=== PATIENT | male | born 1985 ===

== ENCOUNTER 2016-08-15 14:32 | Emergency (ER) | payer OTHER ==
[2016-08-15 14:32] VITALS: BMI 28.0
[2016-08-15 14:39] VITALS: BP 134/90; PULSE 87; RESP 18; TEMP 97.7; O2SAT 97
--- NOTE | 2016-08-15 15:06 | ED PDOC ---
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 denies: Chills, Nausea, Vomiting, Loss Of Appetite, Chest Pain Additional Complaint(s): No fever. PT has not taken medication for pain at home. Pt reports being sexually active without protection. No N/V/back pain. Pt states one day a week ago he had blood. Past Medical History Reviewed: Historical Data, Nursing Documentation, Vital Signs Vital Signs: Last Vital Signs Temp 97.7 F 08/15/16 14:37 Pulse 87 08/15/16 14:37 Resp 18 08/15/16 14:37 BP 134/90 08/15/16 14:37 Pulse Ox 97 08/15/16 14:37 - Medical History PMH: No Chronic Diseases - Surgical History Surgical History: No Surg Hx - Family History Family History: Denies: [place], CAD - Living Arrangements Living Arrangements: With Family - Social History Current smoker - smoking cessation education provided: No - Home Medications Home Medications: Ambulatory Orders Medication Instructions Recorded Ibuprofen [Motrin Tab] 600 mg PO Q6 PRN #15 tab 11/16/15 Ciprofloxacin [Cipro] 500 mg PO BID #10 tab 08/15/16 Ibuprofen [Motrin Tab] 800 mg PO Q6H PRN #20 tab 08/15/16 Tamsulosin [Flomax] 0.4 mg PO DAILY #10 cap 08/15/16 - Allergies Allergies/Adverse Reactions: Allergies Allergy/AdvReac Type Severity Reaction Status Date / Time No Known Allergies Allergy Verified 08/15/16 14:37 Review of Systems ROS Statement: Except As Marked, All Systems Reviewed And Found Negative Genitourinary Male: Positive for: Dysuria, Hematuria Physical Exam - Reviewed Nursing Documentation Reviewed: Yes Vital Signs Reviewed: Yes - Physical Exam Appears: Positive for: Well, Non-toxic, No Acute Distress Head Exam: Positive for: ATRAUMATIC, NORMAL INSPECTION, NORMOCEPHALIC Skin: Positive for: Normal Color, Warm, DRY Eye Exam: Positive for: Normal appearance ENT: Positive for: Normal ENT Inspection Neck: Positive for: Normal, Painless ROM Cardiovascular/Chest: Positive for: Regular Rate, Rhythm Respiratory: Positive for: Normal Breath Sounds. Negative for: Accessory Muscle Use, Respiratory Distress Gastrointestinal/Abdominal: Positive for: Normal Exam, Bowel Sounds, Soft. Negative for: Tenderness Back: Positive for: Normal Inspection Extremity: Positive for: Normal ROM Neurologic/Psych: Positive for: Alert, Oriented - Laboratory Results Result Diagrams: 08/15/16 15:22 08/15/16 15:22 - ECG O2 Sat by Pulse Oximetry: 97 Disposition - Clinical Impression Clinical Impression: Renal stone - Patient ED Disposition Is Patient to be Admitted: No Counseled Patient/Family Regarding: Diagnosis, Need For Followup, Rx Given - Disposition Disposition: Routine/Home Disposition Time: 17:48 Condition: GOOD Prescriptions: Ciprofloxacin [Cipro] 500 mg PO BID #10 tab Ibuprofen [Motrin Tab] 800 mg PO Q6H PRN #20 tab PRN Reason: Pain Tamsulosin [Flomax] 0.4 mg PO DAILY #10 cap Instructions: Kidney Stones (ED)
[2016-08-15 15:30] LABS: HEMOGLOBIN 15.5 g/dL (12.0-18.0); MEAN CELL VOLUME 83.7 fl (80.0-94.0); MEAN CORPUSCULAR HEMOGLOBIN 27.7 pg (27.0-31.0); MEAN CORPUSCULAR HGB CONC 33.1 g/dL (33.0-37.0); RBC 5.6 Mil/uL (4.40-5.90); RED CELL DISTRIBUTION WIDTH 13.2 % (11.5-14.5); WHITE BLOOD COUNT 11.4 K/uL (4.8-10.8)
[2016-08-15 15:47] LABS: ALB/GLOB RATIO 1.4 (1.0-2.1); ALBUMIN 4.6 g/dL (3.5-5.0); ALT/SGPT 66 U/L (21-72); AST/SGOT 38 U/L (17-59); BLOOD UREA NITROGEN 22 mg/dl (9-20); CALCIUM 9.9 mg/dL (8.4-10.2); GFR AFRICAN-AMERICAN > 60; GFR NON-AFRICAN AMERICAN > 60
--- NOTE | 2016-08-15 17:29 | CT ---
PROCEDURE: CT abdomen pelvis. HISTORY: Dated 08/15/2016 hematuria. A, sharp left sided abdominal pain COMPARISON: None. TECHNIQUE: Contiguous axial images of the abdomen and pelvis. Oral contrast was administered. No IV contrast given. Coronal and Sagittal reformats generated. Radiation dose: Total exam DLP = 1104.3 mGy-cm. This CT exam was performed using one or more of the following dose reduction techniques: Automated exposure control, adjustment of the mA and/or kV according to patient size, and/or use of iterative reconstruction technique. FINDINGS: LOWER THORAX: There is minor subsegmental atelectasis and or scarring changes in the right lung base. Remaining lung bases are otherwise clear. No effusion or pneumothorax. Heart size within range of normal. Tiny hiatal hernia. Slight wall thickening of the distal esophagus could be due to protrusion of gastric mucosa. Possibility of esophagitis not excluded. LIVER: Liver is upper limits of normal in size measuring just over 18 cm in CC dimension. Mild diffuse fatty hepatic infiltration with scattered areas of fatty sparing. GALLBLADDER AND BILE DUCTS: Gallbladder is physiologically distended. No evidence of intraluminal gallbladder calculi. PANCREAS: The pancreas is slightly atrophic and fatty replaced. . SPLEEN: Spleen exhibits normal size and attenuation pattern without mass collection or calcification. There is a there are 2 small splenules adjacent to to the anterior and inferior margins of the main body of the spleen. ADRENALS: No adrenal lesions. KIDNEYS AND URETERS: Kidneys exhibit relatively symmetric size. . There is a small approximately 3 mm calculus seen in the lower pole left collecting system left kidney. No other calculi. No evidence of hydronephrosis. . There is a 2 mm calculus within the right UVJ region with minimal dilatation of the distal aspect of the right ureter. BLADDER: Urinary bladder is incompletely distended which may account for slight thick-walled appearance. Muscular hypertrophy may contribute. Rule out cystitis. The REPRODUCTIVE: Unremarkable. APPENDIX: Normal appendix best seen on axial image number [id number]. No periappendiceal inflammatory changes. BOWEL: Evaluation of the bowel is somewhat limited due to the lack of oral contrast material. Stomach is distended with food debris liquid and air. Visualized loops of small bowel exhibit normal contour and caliber. No evidence of acute mechanical small bowel obstruction. There is mild submucosal fatty deposition on along the distal aspect of the ascending colon and hepatic flexure region suggesting sequela of chronic inflammation. Clinical correlation recommended. PERITONEUM: Unremarkable. No fluid collection. No free air. LYMPH NODES: Unremarkable. No enlarged lymph nodes. VASCULATURE: Unremarkable. No aortic aneurysm. BONES: No fracture or destructive lesion. OTHER FINDINGS: None. IMPRESSION: Small 2 mm calculus of right UVJ region with minimal of dilatation of the distal right ureter. 3 mm calculus lower pole collecting system left kidney. Urinary bladder is incompletely distended which may account for slight thick-walled appearance. Possibility of a cystitis not excluded. Subsegmental atelectasis and or scarring right lung base. Borderline hepatomegaly. Fatty infiltration. There also appears to be mild submucosal fat deposition within a short segment of the distal ascending colon suggesting sequela of chronic inflammation. Clinical correlation recommended.
== END 2016-08-15 18:57 | disposition home or self-care (01) ==
LOC: H.ER 14:32
DX: N20.0 Calculus of kidney (principal)

== ENCOUNTER 2016-08-23 14:28 | Emergency (ER) | payer OTHER ==
[2016-08-23 14:28] VITALS: BMI 28.0
[2016-08-23 14:44] VITALS: RESP 18
[2016-08-23] MEDS ORDERED: Sodium Chloride 0.9% 2,000 ML IV STA (14:50)
--- NOTE | 2016-08-23 15:10 | ED PDOC ---
HPI: Male Pain Time Seen by Provider: 08/23/16 14:48 Chief Complaint (Nursing): Male Genitourinary History Per: Patient History/Exam Limitations: no limitations Onset/Duration Of Symptoms: Hrs (2) Current Symptoms Are (Timing): Better Severity: Moderate Pain Scale Rating Of: 4 Quality Of Discomfort: Stabbing Associated Symptoms: Urinary Symptoms. denies: Fever, Chills, Nausea, Vomiting , Diarrhea, Loss Of Appetite, Back Pain Alleviating Factors: None Additional History Per: Patient, Prior Records Additional Complaint(s): Pt co right flank pain for 2hr. Pain is intermittent. He took advil that helped. Associated dysuria. Pt has been seen here for the same on July 16. He was dx with 2 mm right IVJ stone on the CT. Pt reports he lost his rx but felt well and he did not return until today. Denies fever or vomiting. Past Medical History Reviewed: Historical Data, Nursing Documentation, Vital Signs Vital Signs: Last Vital Signs Temp 98.4 F 08/23/16 14:42 Pulse 94 H 08/23/16 14:42 Resp 18 08/23/16 14:42 BP 139/89 08/23/16 14:42 Pulse Ox 97 08/23/16 14:42 - Medical History PMH: Kidney Stones - Surgical History Surgical History: No Surg Hx - Family History Family History: States: No Known Family Hx Denies: [place], CAD - Home Medications Home Medications: Ambulatory Orders Medication Instructions Recorded Ibuprofen [Motrin Tab] 600 mg PO Q6 PRN #15 tab 11/16/15 Ibuprofen [Motrin Tab] 800 mg PO Q6H PRN #20 tab 08/15/16 Ciprofloxacin [Cipro] 500 mg PO BID #10 tab 08/23/16 Tamsulosin [Flomax] 0.4 mg PO DAILY #10 cap 08/23/16 - Allergies Allergies/Adverse Reactions: Allergies Allergy/AdvReac Type Severity Reaction Status Date / Time No Known Allergies Allergy Verified 08/15/16 14:37 Review of Systems ROS Statement: Except As Marked, All Systems Reviewed And Found Negative Physical Exam - Reviewed Nursing Documentation Reviewed: Yes Vital Signs Reviewed: Yes - Physical Exam Appears: Positive for: Non-toxic, No Acute Distress Head Exam: Positive for: ATRAUMATIC Skin: Positive for: Warm, Dry Eye Exam: Positive for: EOMI Neck: Positive for: Normal, Painless ROM Cardiovascular/Chest: Positive for: Regular Rate, Rhythm. Negative for: Tachycardia Respiratory: Positive for: Normal Breath Sounds. Negative for: Respiratory Distress Gastrointestinal/Abdominal: Positive for: Soft. Negative for: Tenderness Back: Negative for: L CVA Tenderness, R CVA Tenderness Extremity: Positive for: Normal ROM Neurologic/Psych: Positive for: Alert, Oriented - Laboratory Results Result Diagrams: 08/23/16 15:20 08/23/16 15:20 - ECG O2 Sat by Pulse Oximetry: 97 - Progress Re-evaluation Time: 18:00 Condition: Re-examined, Improved Medical Decision Making Medical Decision Making: Right flank pain Diff include renal colic from ureteral stone, UTI Plan Labs Renal US IVF flomax 0.4 mg PO Renal US no acute findings Disposition - Clinical Impression Clinical Impression: Urinary tract infection, Kidney stones - Patient ED Disposition Is Patient to be Admitted: No Doctor Will See Patient In The: Office Counseled Patient/Family Regarding: Studies Performed, Diagnosis, Need For Followup - Disposition Referrals: [facility] [Outside] Disposition: Routine/Home Disposition Time: 18:17 Condition: GOOD Additional Instructions: Take medications as instructed. Return for worsening. Follow up with your PCP in 2-3 days. Prescriptions: Ciprofloxacin [Cipro] 500 mg PO BID #10 tab Tamsulosin [Flomax] 0.4 mg PO DAILY #10 cap Instructions: Urinary Tract Infection in Men (ED), Renal Colic (ED) Print Language: ITALIAN
[2016-08-23 15:30] LABS: BASO # 0.1 K/uL (0.0-0.2); BASO % 0.5 % (0.0-2.0); EOS # 0.1 K/uL (0.0-0.7); HEMOGLOBIN 14.5 g/dL (12.0-18.0); LYMPH % 10.8 % (20.0-40.0); MEAN CELL VOLUME 84.4 fl (80.0-94.0); MEAN CORPUSCULAR HEMOGLOBIN 28.2 pg (27.0-31.0); MEAN CORPUSCULAR HGB CONC 33.4 g/dL (33.0-37.0); MEAN PLATELET VOLUME 10.3 fl (7.2-11.7); MONO # 0.5 K/uL (0.0-0.8); MONO % 5.1 % (0.0-10.0); NEUT # 7.9 K/uL (1.8-7.0); NEUT % 82.6 % (50.0-75.0); RBC 5.14 Mil/uL (4.40-5.90); RED CELL DISTRIBUTION WIDTH 12.9 % (11.5-14.5); WHITE BLOOD COUNT 9.6 K/uL (4.8-10.8)
[2016-08-23 15:46] LABS: ALB/GLOB RATIO 1.2 (1.0-2.1); ALBUMIN 4.3 g/dL (3.5-5.0); ALT/SGPT 67 U/L (21-72); AST/SGOT 41 U/L (17-59); BLOOD UREA NITROGEN 21 mg/dl (9-20); CALCIUM 9.8 mg/dL (8.4-10.2); GFR AFRICAN-AMERICAN > 60; GFR NON-AFRICAN AMERICAN > 60
[2016-08-23 16:24] LABS: SQUAMOUS EPITHIAL < 1 /hpf (0-5); URINE BACTERIA FEW (<OCC); URINE BILIRUBIN NEGATIVE (NEGATIVE); URINE BLOOD NEGATIVE (NEGATIVE); URINE CLARITY CLEAR (Clear); URINE COLOR YELLOW (YELLOW); URINE GLUCOSE (UA) NEG (Normal); URINE HYALINE CAST 0-2 /hpf (0-2); URINE LEUKOCYTE ESTERASE NEG Leu/uL (Negative); URINE NITRATE NEGATIVE (NEGATIVE); URINE PROTEIN NEGATIVE (NEGATIVE); URINE UROBILINOGEN 0.2-1.0 mg/dL (0.2-1.0)
--- NOTE | 2016-08-23 17:55 | US ---
PROCEDURE: Ultrasound of the Kidneys HISTORY: evaluate for hydronephrosis right sided COMPARISON: CT abdomen and pelvis without oral or IV contrast performed 08/15/16 TECHNIQUE: Sonogram of the kidneys. FINDINGS: RIGHT KIDNEY: Measures: 11.5 x 7.2 x 6.1 cm. No obstructing calculus or hydronephrosis identified. LEFT KIDNEY: Measures: 12.4 x 6.7 x 6.2 cm. No obstructing calculus or hydronephrosis identified. OTHER FINDINGS: None. IMPRESSION: Unremarkable renal sonogram as above.
[2016-08-23 18:17] VITALS: BP 122/66; PULSE 70; TEMP 97.9
[2016-08-23 18:19] VITALS: O2SAT 97
== END 2016-08-23 18:41 | disposition home or self-care (01) ==
LOC: H.ER 14:28
DX: N39.0 Urinary tract infection, site not specified (principal); Z87.442 Personal history of urinary calculi

== ENCOUNTER 2018-04-28 13:33 | Emergency (ER) | payer SELFPAY ==
[2018-04-28 13:33] VITALS: BMI 28.0
[2018-04-28 13:45] VITALS: BP 132/86; PULSE 89; RESP 18; TEMP 98; O2SAT 98
--- NOTE | 2018-04-28 14:25 | ED PDOC ---
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 He states that there was no injury or trauma prior to onset of symptoms. Patient has not seen a doctor for the pain before arrival. He reports that he only takes Advil occasionally. Otherwise, denies fever, dysuria and incontinence. PMD: none provided Past Medical History Reviewed: Historical Data, Nursing Documentation, Vital Signs Vital Signs: Last Vital Signs Temp 98.0 F 04/28/18 13:42 Pulse 89 04/28/18 13:42 Resp 18 04/28/18 13:42 BP 132/86 04/28/18 13:42 Pulse Ox 98 04/28/18 13:42 - Medical History PMH: Kidney Stones Other PMH: left leg fracture (years ago) - Family History Family History: States: Unknown Family Hx Denies: [place], CAD - Home Medications Home Medications: Ambulatory Orders Medication Instructions Recorded Ibuprofen [Motrin Tab] 600 mg PO Q6 PRN #15 tab 11/16/15 Ibuprofen [Motrin Tab] 800 mg PO Q6H PRN #20 tab 08/15/16 Ciprofloxacin [Cipro] 500 mg PO BID #10 tab 08/23/16 Tamsulosin [Flomax] 0.4 mg PO DAILY #10 cap 08/23/16 Ibuprofen [Motrin Tab] 600 mg PO TID #15 tab 04/28/18 - Allergies Allergies/Adverse Reactions: Allergies Allergy/AdvReac Type Severity Reaction Status Date / Time No Known Allergies Allergy Verified 04/28/18 13:42 Review of Systems ROS Statement: Except As Marked, All Systems Reviewed And Found Negative Constitutional: Negative for: Fever, Chills Genitourinary Male: Negative for: Dysuria, Frequency, Incontinence, Hematuria Musculoskeletal: Positive for: Back Pain (left lower back). Negative for: Leg Pain Physical Exam - Reviewed Nursing Documentation Reviewed: Yes Vital Signs Reviewed: Yes - Physical Exam Appears: Positive for: No Acute Distress Head Exam: Positive for: ATRAUMATIC, NORMAL INSPECTION, NORMOCEPHALIC Skin: Positive for: Normal Color, Warm, Dry Eye Exam: Positive for: EOMI, Normal appearance, PERRL Neck: Positive for: Normal, Painless ROM, Supple Cardiovascular/Chest: Positive for: Regular Rate, Rhythm. Negative for: Murmur Respiratory: Positive for: Normal Breath Sounds. Negative for: Respiratory Distress Back: Positive for: Other (mild left paralumbar tenderness; negative straight leg test). Negative for: Normal Inspection, L CVA Tenderness, R CVA Tenderness, Vertebral Tenderness, Decreased ROM, Muscle Spasm Extremity: Positive for: Normal ROM (upper and lower extremities), Other (5/5 strength in bilateral lower extremities; sensation intact). Negative for: Deformity Neurological/Psych: Positive for: Awake, Alert, Normal Tone, Symmetric/Intact Strength, Oriented. Negative for: Motor/Sensory Deficits - ECG O2 Sat by Pulse Oximetry: 98 Pulse Ox Interpretation: Normal Medical Decision Making Medical Decision Makin:00 Impression: back pain Initial Plan: Will start patient on anti-inflammatory medication for back pain. No midline tenderness or h/o trauma, no indication for xray at this time. Patient will then be discharged with referral for a back specialist. Advised to follow up if pain persists. Scribe Attestation: Documented by Elsi Robb acting as a scribe for Hannah Mcdowell PA-C. Provider Scribe Attestation: All medical record entries made by the Scribe were at my direction and personally dictated by me. I have reviewed the chart and agree that the record accurately reflects my personal performance of the history, physical exam, medical decision making, and the department course for this patient. I have also personally directed, reviewed, and agree with the discharge instructions and disposition. Disposition - Clinical Impression Clinical Impression: Back pain - Patient ED Disposition Is Patient to be Admitted: No Counseled Patient/Family Regarding: Diagnosis, Need For Followup, Rx Given - Disposition Referrals: Marija Gil MD [Staff Provider] - Disposition: Routine/Home Disposition Time: 14:37 Condition: STABLE Prescriptions: Ibuprofen [Motrin Tab] 600 mg PO TID #15 tab Instructions: Lumbar Muscle Strain (DC) Forms: [facility] (Libyan) Print Language: HONDURAN
== END 2018-04-28 15:27 | disposition home or self-care (01) ==
LOC: H.ER 13:33
DX: M54.9 Dorsalgia, unspecified (principal)